=== PATIENT | male | born 2000 | race African-American/Black ===

== ENCOUNTER 2022-12-05 16:36 | Emergency (ER) | payer MEDICAID ==
[~2022-12-05] VITALS: Ht 175.3 cm; Wt 66.5 kg
[2022-12-05 18:25] VITALS: BP 120/78
[2022-12-05] MEDS ORDERED: TETANUS-DIPTH-ACEL PERTUSSIS 0.5ML SYR Tdap IM ONE (19:15)
[2022-12-05] MEDS ORDERED: IBUPROFEN 800 MG TAB PO ONE (19:15)
[2022-12-05] MEDS ORDERED: cefTRIAXone SOD 1,000 MG VL IM ONE (19:15)
[2022-12-05] MEDS ORDERED: CEPH500C PO (19:17)
[2022-12-05] MEDS ORDERED: IBUP-1456 PO (19:17)
[2022-12-05] MEDS ORDERED: CLIN300C70 PO (19:17)
== END 2022-12-05 19:33 | disposition home or self-care (01) ==
LOC: ER 16:36
DX: L03.115 Cellulitis of right lower limb (principal); Z79.899 Other long term (current) drug therapy
CPT/HCPCS: 73562; 90471; 90715; 96372; 99284; J0696